=== PATIENT | female | born 1960 | race Caucasian/White ===

== ENCOUNTER 2017-02-25 20:16 | Emergency (ER) | payer SELFPAY ==
[2017-02-25] MEDS ORDERED: Sodium Chloride 0.9% 100 ML ONE (20:58)
[2017-02-25] MEDS ORDERED: Metoclopramide HCl 10 MG/2 ML VIAL ONE (20:58)
[2017-02-25] MEDS ORDERED: SUMAtriptan Succinate 6 MG/0.5 ML VIAL ONE (21:05)
--- NOTE | 2017-02-25 21:37 | CT ---
CT OF BRAIN WITHOUT CONTRAST ENHANCEMENT: History: Sudden headache. FINDINGS: The ventricular and cisternal system is within normal limits. There are no signs of any intracerebra l hemorrhage or extraaxial fluid collections. The mastoid air cells and visualized sinuses are clear . IMPRESSION: No acute intracranial abnormality. POS: [facility]
[2017-02-25] MEDS ORDERED: Sodium Chloride 0.9% 1,000 ML ONE (22:25)
== END 2017-02-25 22:11 | disposition home or self-care (01) ==
LOC: NAV ERS 20:16
DX: G43.909 Migraine, unspecified, not intractable, without status migrainosus (principal); I10 Essential (primary) hypertension; F17.210 Nicotine dependence, cigarettes, uncomplicated
CPT/HCPCS: 70450; 96361; 96365; 96372; J2765; J3030; J7050

== ENCOUNTER 2023-02-08 18:18 | Emergency (ER) | payer SELFPAY ==
[~2023-02-08 18:18] MED LIST: Iopamidol 370 76% 100 ML VIAL ONE
[2023-02-08] MEDS ORDERED: Sodium Chloride 0.9% 1,000 ML ONE (18:41)
[2023-02-08 18:46] LABS: #Basophils 0.1 thou/uL (0.0-0.2); #Eosinphils 0.2 thou/uL (0.0-0.7); #Lymphocytes 2.7 thou/uL (1.20-3.40); #Monocytes 0.5 thou/uL (0.11-0.59); #Neutrophils 3.4 thou/uL (1.40-6.50); %Basophils 1.1 % (0.0-1.0); %Eosinophils 2.9 % (0.0-10.0); %Lymphocytes 39.7 % (21.0-51.0); %Neutrophils 49.4 % (42.0-75.0); Hematocrit 43.4 % (36.0-47.0); Hemoglobin 14.2 g/dL (12.0-16.0); Mean Corpuscular HGB CONC 32.8 g/dL (32.0-36.0); Mean Corpuscular Hemoglobin 31.7 pg (27.0-31.0); Mean Corpuscular Volume 96.8 fl (78.0-98.0); Platelet Count 183 10x3/uL (130-400); RBC Distribution Width 12.5 % (11.5-14.5); Red Blood Cell (RBC) Count 4.48 mill/uL (4.20-5.40); White Blood Cell (WBC) Count 6.8 10x3/uL (4.8-10.8)
[2023-02-08 19:05] LABS: ALT (SGPT) 16 U/L (8-55); AST (SGOT) 20 U/L (5-34); Albumin 4.4 g/dL (3.5-5.0); Alkaline Phosphatase 76 U/L (40-110); Anion Gap 15 mmol/L (10-20); BUN (Urea Nitrogen) 21 mg/dL (9.8-20.1); Bilirubin, Total 0.2 mg/dL (0.2-1.2); Calc. Creatinine Clearance 0 mL/min (70-130); Calcium 9.9 mg/dL (7.8-10.44); Carbon Dioxide 26 mmol/L (22-29); Chloride 105 mmol/L (98-107); Estimated GFR 74; Globulin 3.2 g/dL (2.4-3.5); Glucose 91 mg/dL (70-105); Potassium 4.1 mmol/L (3.5-5.1); Protein, Total 7.6 g/dL (6.0-8.3); Sodium 142 mmol/L (136-145)
[2023-02-08 19:07] LABS: Troponin I Less than 0.010 ng/mL (< 0.028)
[2023-02-08 19:52] LABS: Bilirubin Negative (Negative); Blood, Urine Negative (Negative); Clarity Clear (Clear); Glucose, Urine (Dipstick) Negative (Negative); Ketone, Urine Negative (Negative); Leukocyte Small (Negative); Nitrite Negative (Negative); Protein, Urine (Dipstick) Negative (Neg-Trace); Urobilinogen 0.2 mg/dL (Less than 2); pH, Urine 7.5 (5.0-9.0)
[2023-02-08 19:57] LABS: Bacteria/HPF 1+ HPF (None Seen); CAUTI Indications for Culture Pelvic or flank pain; Squamous Epithelial 0-3 HPF (0-3)
[2023-02-08 19:58] LABS: Urine Culture Reflex No No
== END 2023-02-08 20:13 | disposition home or self-care (01) ==
LOC: NAV ERS 18:18
DX: K43.9 Ventral hernia without obstruction or gangrene (principal); F17.210 Nicotine dependence, cigarettes, uncomplicated; I10 Essential (primary) hypertension
CPT/HCPCS: 74177; 80053; 81001; 83605; 84484; 85025; 93005; 96360; J7050; Q9967

== ENCOUNTER 2024-06-06 05:23 | Emergency (ER) | payer SELFPAY | END 2024-06-06 06:28 | disposition home or self-care (01) | LOC: NAV ERS 05:23 | DX: J11.1 Influenza due to unidentified influenza virus with other respiratory manifestations (principal); I10 Essential (primary) hypertension; F17.210 Nicotine dependence, cigarettes, uncomplicated | CPT/HCPCS: 71045; 87428 ==